=== PATIENT | female | born 1995 | race American Indian/Alaskan Native ===

== ENCOUNTER 2017-03-16 18:01 | Emergency (ER) | payer SELFPAY ==
--- NOTE | 2017-03-16 20:10 | Emergency Department Report ---
HPI - General Chief Complaint: Sore Throat Time Seen by Provider: 03/16/17 19:59 - HPI HPI: Patient is a 21-year-old female who presents to ED complaining of throat pain 3 days. Patient describes pain as throbbing in nature, 8 out of 10 intensity, nonradiating, localized to his throat. Admits pain with swallowing and eating. Patient admits no appetite due to throat pain. Patient admits fever for the first 2 days. Denies cough and congestion or runny nose Patient denies nausea/vomiting/abdominal pain/shortness of breath/chest pain/ headache. ED Past Medical Hx - Past Medical History Previous Medical History?: No - Surgical History Past Surgical History?: No - Social History Smoking Status: Never Smoker Substance Use Type: None - Medications Home Medications: Home Medications Medication Instructions Recorded Confirmed Last Taken Type Ibuprofen Oral Liqd [Motrin] 600 mg PO TID PRN #120 ml 03/16/17 Unknown Rx predniSONE [Deltasone] 20 mg PO DAILY #3 tablet 03/16/17 Unknown Rx ED Review of Systems ROS: Stated complaint: FEVER/CONGESTION Other details as noted in HPI Constitutional: denies: chills, fever Eyes: denies: eye pain, eye discharge, vision change ENT: throat pain. denies: ear pain, dental pain, congestion Respiratory: denies: cough, shortness of breath, wheezing Cardiovascular: denies: chest pain, palpitations Endocrine: no symptoms reported Gastrointestinal: denies: abdominal pain, nausea, diarrhea Genitourinary: denies: urgency, dysuria, discharge Musculoskeletal: denies: back pain, joint swelling, arthralgia Skin: denies: rash, lesions Neurological: denies: headache, weakness, paresthesias Psychiatric: denies: anxiety, depression Hematological/Lymphatic: denies: easy bleeding, easy bruising Physical Exam - Physical Exam Vital Signs: Vital Signs 03/16/17 18:10 Temperature 99.1 F Pulse Rate 103 H Respiratory 16 Rate Blood Pressure 127/87 O2 Sat by Pulse 97 Oximetry Physical Exam: GENERAL: Alert and oriented x3, no apparent distress, Normal Gait, atraumatic. EARS: symetrical, atraumatic, non tender, ear canal clear and moderate cerumen, tympanic membrance non inflamed. gross auditory nml bilaterally. NOSE: Nose symetrical, Nontender,Nares appeared normal. MOUTH:Mouth is well hydrated and without lesions. Tonsils are moderately erythematous ans swollen, Uvula midline, Tongue not elevated. Mucous membranes are moist. Posterior pharynx erythematous and mild exudate , no lesions. Patent airways. NECK: Supple. Non edematous, mild lymphadenopathy , no thyromegaly. LUNGS: Symetrical with respiration, No wheezing, no rales or crackles, CTAB. HEART: S1, S2 present, regular rate and rhythm without murmur, no rubs, no gallops. Non tender to palpation ABDOMEN: No organomegaly was noted,. Nontender to palpation on all Quadrants, SKIN: Warm and dry, No lesions, No ulceration or induration present. ED Course Vital Signs 03/16/17 18:10 Temperature 99.1 F Pulse Rate 103 H Respiratory 16 Rate Blood Pressure 127/87 O2 Sat by Pulse 97 Oximetry ED Medical Decision Making - Medical Decision Making 22-year-old male presents with strep pharyngitis. ED course: Rapid strep tests ordered rapid strep test positive Patient received 1 dose of Tylenol, 1.2 million units of penicillin, 60 mg of prednisone. Fever responsive to one dose of Tylenol. Vital signs stable patient is in no acute or respiratory distress. Discussed findings with patient about the positive strep. Discussed treatment in ED with patient Discussed the patient that strep throat is contagious and to limit sharing spoons and such. Pt to be sent home on Motrin and a couple of days worth of prednisone. Discussed with patient follow-up with primary care physician. Patient verbally states he understands and will comply to follow-up. Critical care attestation.: If time is entered above; I have spent that time in minutes in the direct care of this critically ill patient, excluding procedure time. ED Disposition Clinical Impression: Strep pharyngitis, Acute bacterial tonsillitis Disposition: DC-01 TO HOME OR SELFCARE Is pt being admited?: No Does the pt Need Aspirin: No Condition: Stable Instructions: Strep Throat (ED), Tonsillitis (ED) Additional Instructions: Taking medication as prescribed. Follow up with her primary care physician as referred. If symptoms worsen return to ED. Prescriptions: Ibuprofen Oral Liqd [Motrin] 600 mg PO TID PRN #120 ml PRN Reason: Pain predniSONE [Deltasone] 20 mg PO DAILY #3 tablet Referrals: PRIMARY CARE, [Primary Care Provider] - 3-5 Days [facility] [Outside] - 3-5 Days [facility] [Outside] - 3-5 Days [facility] [Outside] - 3-5 Days Forms: Accompanied Note, Work/School Release Form(ED)
[2017-03-16] MEDS ORDERED: DELTASONE PO ONE (20:35)
[2017-03-16] MEDS ORDERED: TYLENOL PO ONE (20:35)
[2017-03-16] MEDS ORDERED: BICILLIN L-A IM ONE (20:35)
[2017-03-16 21:48] VITALS: BP 116/83
== END 2017-03-16 21:48 | disposition home or self-care (01) ==
LOC: ED 18:01
DX: J02.0 Streptococcal pharyngitis (principal); J03.80 Acute tonsillitis due to other specified organisms; B96.89 Other specified bacterial agents as the cause of diseases classified elsewhere
CPT/HCPCS: 81025; 87086; 87430; 96372; 99283; J0561; J7512

== ENCOUNTER 2017-08-19 14:37 | Emergency (ER) | payer OTHER ==
[2017-08-19 15:22] LABS: Basophils % (Auto) 0.5 % (0.0-1.8); Eosinophils % (Auto) 3.1 % (0.0-4.3); Hematocrit 40.4 % (30.3-42.9); Hemoglobin 12.8 gm/dl (10.1-14.3); Mean Corpuscular HGB Conc 32 % (30-34); Mean Corpuscular Hemoglobin 26 pg (28-32); Mean Corpuscular Volume 83 fl (79-97); Platelet Count 245 K/mm3 (140-440); Red Blood Count 4.85 M/mm3 (3.65-5.03); Red Cell Distribution Width 12.9 % (13.2-15.2); White Blood Count 8.1 K/mm3 (4.5-11.0)
[2017-08-19 15:30] LABS: Anion Gap 17 mmol/L; BUN/Creatinine Ratio 13; Blood Urea Nitrogen 9 mg/dL (7-17); Calcium 8.8 mg/dL (8.4-10.2); Carbon Dioxide 25 mmol/L (22-30); Chloride 102.7 mmol/L (98-107); Glucose 75 mg/dL (65-100); Sodium 141 mmol/L (137-145)
--- NOTE | 2017-08-19 18:38 | XRay Report ---
FINAL REPORT PROCEDURE: XR CHEST ROUTINE 2V TECHNIQUE: PA and lateral chest radiographs were obtained. CPT 77351 HISTORY: Shortness of breath. COMPARISON: No prior studies are available for comparison. FINDINGS: Heart: Normal. Mediastinum/Vessels: Normal. Lungs/Pleural space: Normal. Bony thorax: No acute osseous abnormality. Other: IMPRESSION: No radiographic evidence of acute cardiopulmonary disease.
[2017-08-19] MEDS ORDERED: NORCO 5/325 PO ONE (19:39)
[2017-08-19] MEDS ORDERED: MOTRIN PO ONE (19:39)
--- NOTE | 2017-08-19 19:46 | Emergency Department Report ---
HPI - General Chief Complaint: Dyspnea/Respdistress Time Seen by Provider: 08/19/17 19:19 - HPI HPI: Room 5 The patient is a 22-year-old female presenting with a chief complaint of chest pain and back pain. The patient states for the past 3 days she has had pain in the substernal, lower costal margin and upper back that worsens whenever she takes a deep breath. She describes the pain as sharp in nature. Patient denies cough, fever, shortness of breath or rhinorrhea. Patient denies taking oral contraceptives or been on any recent flights/long car trips. Patient denies any previous episodes of same. The patient currently gives her pain a score of 7/10 Location: [See above] Duration: 3 days Quality: Sharp Severity: 7/10 Modifying factors: [see above] Context: [see above] Mode of transportation: [not driving] ED Past Medical Hx - Past Medical History Previous Medical History?: No - Surgical History Past Surgical History?: No - Family History Family history: no significant - Social History Smoking Status: Current Every Day Smoker (1 pack per day) Substance Use Type: None (denies illicit drug use) - Medications Home Medications: Home Medications Medication Instructions Recorded Confirmed Last Taken Type Ibuprofen Oral Liqd [Motrin] 600 mg PO TID PRN #120 ml 03/16/17 Unknown Rx predniSONE [Deltasone] 20 mg PO DAILY #3 tablet 03/16/17 Unknown Rx HYDROcodone/APAP 5-325 [[place] 1 - 2 each PO Q6HR PRN #10 tablet 08/19/17 Unknown Rx 5/325] Ibuprofen [Motrin] 800 mg PO Q8HR PRN #20 tablet 08/19/17 Unknown Rx ED Review of Systems ROS: Stated complaint: FLU LIKE SYMPTOMS Other details as noted in HPI Constitutional: denies: fever Respiratory: other (pleurisy). denies: cough, shortness of breath Musculoskeletal: back pain Physical Exam - Physical Exam Vital Signs: Vital Signs 08/19/17 14:42 Temperature 98.3 F Pulse Rate 83 Respiratory 16 Rate Blood Pressure 123/81 O2 Sat by Pulse 99 Oximetry Physical Exam: GENERAL: The patient is well-developed well-nourished female lying on stretcher not appearing to be in acute distress. [] HEENT: Normocephalic. Atraumatic. Extraocular motions are intact. Patient has moist mucous membranes. NECK: Supple. Trachea midline CHEST/LUNGS: Clear to auscultation. There is no respiratory distress noted. HEART/CARDIOVASCULAR: Regular. There is no tachycardia. There is no gallop rub or murmur. ABDOMEN: Abdomen is soft, nontender. Patient has normal bowel sounds. There is no abdominal distention. SKIN: There is no rash. There is no edema. There is no diaphoresis. NEURO: The patient is awake, alert, and oriented. The patient is cooperative. The patient has normal speech MUSCULOSKELETAL: There is no tenderness to palpation of either calf. There is no evidence of acute injury. ED Course Vital Signs 08/19/17 14:42 Temperature 98.3 F Pulse Rate 83 Respiratory 16 Rate Blood Pressure 123/81 O2 Sat by Pulse 99 Oximetry ED Medical Decision Making - Lab Data Result diagrams: 08/19/17 14:55 08/19/17 14:55 Laboratory Tests 08/19/17 08/19/17 08/19/17 14:55 14:55 19:34 WBC 8.1 RBC 4.85 Hgb 12.8 Hct 40.4 MCV 83 MCH 26 L MCHC 32 RDW 12.9 L Plt Count 245 Lymph % (Auto) 23.1 [place] % (Auto) 7.6 H Eos % (Auto) 3.1 Baso % (Auto) 0.5 Lymph # 1.9 [place] # 0.6 Eos # 0.2 Baso # 0.0 Seg Neutrophils % 65.7 Seg Neutrophils # 5.3 D-Dimer 180.01 Sodium 141 Potassium 4.0 Chloride 102.7 Carbon Dioxide 25 Anion Gap 17 BUN 9 Creatinine 0.7 Estimated GFR > 60 BUN/Creatinine Ratio 13 Glucose 75 Calcium 8.8 Troponin T < 0.010 HCG, Qual 08/19/17 19:39 WBC RBC Hgb Hct MCV MCH MCHC RDW Plt Count Lymph % (Auto) [place] % (Auto) Eos % (Auto) Baso % (Auto) Lymph # [place] # Eos # Baso # Seg Neutrophils % Seg Neutrophils # D-Dimer Sodium Potassium Chloride Carbon Dioxide Anion Gap BUN Creatinine Estimated GFR BUN/Creatinine Ratio Glucose Calcium Troponin T HCG, Qual Negative - EKG Data -: EKG Interpreted by Vt EKG shows normal: sinus rhythm Rate: normal - EKG Data When compared to previous EKG there are: previous EKG unavailable Interpretation: nonspecific ST-T wave manish (T-wave inversions in leads 3, aVF, V3 , V4, V5, V6) - Radiology Data Radiology results: image reviewed (chest x-ray) interpreted by me: Chest x-ray-no focal infiltrates, no pneumothorax - Differential Diagnosis PE, pleurisy, bronchitis, pneumonia Critical care attestation.: If time is entered above; I have spent that time in minutes in the direct care of this critically ill patient, excluding procedure time. ED Disposition Clinical Impression: Pleurisy Disposition: TO HOME OR SELFCARE Is pt being admited?: No Does the pt Need Aspirin: No Condition: Stable Instructions: Pleurisy (ED) Additional Instructions: Return to the emergency department immediately should you develop worsening symptoms, fever, inability to tolerate food or liquid or any other concerns. Prescriptions: HYDROcodone/APAP 5-325 [[place] 5/325] 1 - 2 each PO Q6HR PRN #10 tablet PRN Reason: Pain Ibuprofen [Motrin] 800 mg PO Q8HR PRN #20 tablet PRN Reason: Pain Referrals: SANTOS CARRILLO MD [Staff Physician] - 3-5 Days [facility] [Outside] - 3-5 Days Time of Disposition: 20:31
[2017-08-19 21:39] VITALS: BP 120/57
== END 2017-08-19 21:37 | disposition home or self-care (01) ==
LOC: ED 14:37
DX: R09.1 Pleurisy (principal); M54.9 Dorsalgia, unspecified; F17.210 Nicotine dependence, cigarettes, uncomplicated
CPT/HCPCS: 36415; 71020; 80048; 84484; 84703; 85025; 85379; 93005; 93010; 99284

== ENCOUNTER 2017-09-22 19:02 | Emergency (ER) | payer SELFPAY ==
[2017-09-22 20:10] VITALS: BP 119/73
--- NOTE | 2017-09-22 21:36 | Emergency Department Report ---
Minor Respiratory - HPI Chief Complaint: Upper Respiratory Infection Stated Complaint: FLU LIKE SYMPTOMS Time Seen by Provider: 09/22/17 21:33 Duration: 2 Days Pain Location: Other Severity: mild Minor Respiratory: Yes Sore Throat, Yes Able to Tolerate Fluids, Yes Cough, No Rhinorrhea, No Ear Pain, No Sick Contacts, No Hemoptysis, No Chest Pain, No Shortness of Breath, No Fever Other History: no abd pain. no dysuria. no flank pain. no cva tenderness. no vag dc or bleeding ED Review of Systems ROS: Stated complaint: FLU LIKE SYMPTOMS Other details as noted in HPI Comment: All other systems reviewed and negative Constitutional: see HPI, malaise Eyes: as per HPI ENT: as per HPI Respiratory: see HPI, cough Cardiovascular: as per HPI Endocrine: no symptoms reported Gastrointestinal: nausea, diarrhea, other (but no n/v/d since here in the er for now 3 hours) ED Past Medical Hx - Past Medical History Previous Medical History?: Yes Additional medical history: polysub abuse - Surgical History Past Surgical History?: No - Social History Smoking Status: Never Smoker Substance Use Type: None Minor Respiratory Exam - Exam General: Vital signs noted. No distress. Alert and acting appropriately. HEENT: Yes Pharyngeal Erythema, Yes Moist Mucous Membranes, No Pharyngeal Exudates, No Rhinorrhea, No Conjuctival Injection, No Frontal Tenderness, No Maxillary Tenderness Ear: Neither TM Bulge, Neither TM Erythema, Neither EAC Pain, Neither EAC Discharge Neck: Yes Supple, No Adenopathy Lungs: Yes Good Air Exchange, Yes Cough, No Wheezes, No Ronchi, No Stridor, No Labored Respirations, No Retractions, No Use of Accessory Muscles, No Other Abnormal Lung Sounds Heart: Yes Regular, No Murmur Abdomen: Yes Normal Bowel Sounds, No Tenderness, No Peritoneal Signs Skin: No Rash, No Edema Neurologic: Alert and oriented, no deficits. Musculoskeletal: Unremarkable. ED Course Vital Signs 09/22/17 20:07 Temperature 97.9 F Pulse Rate 95 H Respiratory 18 Rate Blood Pressure 119/73 O2 Sat by Pulse 97 Oximetry - Reevaluation(s) Reevaluation #1: 09/22/17 21:59 As to the ER today with chief complaint of flulike symptoms and body aches since Saturday. She has missed work since that time. Patient's exam is benign with the exception of a mild cough and mild erythema of the posterior oropharynx. Vital signs are stable is no fever. No nausea vomiting or diarrhea. No abdominal pain no dysuria. No CVA tenderness. No purulent discharge with the cough. No headache. No other signs or symptoms suggestive of an acute infection. sat 99 ra; hr 85; temp 99.1 orally taking po has been out of work since Saturday due to return in AM flu neg Reevaluation #2: 09/22/17 22:04 drinking juice with no n/v/d ambulatory nad 09/22/17 22:20 asking for work note- missed since Saturday ED Medical Decision Making - Medical Decision Making see note - Differential Diagnosis viral illness v influenza Critical care attestation.: If time is entered above; I have spent that time in minutes in the direct care of this critically ill patient, excluding procedure time. ED Disposition Clinical Impression: Viral illness Disposition: DC- TO HOME OR SELFCARE Is pt being admited?: No Does the pt Need Aspirin: No Condition: Stable Instructions: Viral Syndrome (ED) Additional Instructions: rest hydrate well advance diet as tolerated follow up with pcp within 48 hours to be sure you are getting better motrin or tylenol for fever or body pain return to er if you have fever over 100.5 orally that will not come down with motrin or tylenol Referrals: JOSE HARDY MD [Staff Physician] - 3-5 Days Forms: Work/School Release Form(ED) Time of Disposition: 21:54
[2017-09-22 22:19] LABS: Bilirubin,Urine NEG (Negative); Blood,Urine LG (Negative); Color,Urine Yellow (Yellow); Mucus,Urine 2+ /HPF; Nitrite,Urine NEG (Negative); Protein,Urine <15 mg/dL mg/dL (Negative)
[2017-09-22 22:32] LABS: HCG Qualitative,Urine Negative (Negative)
== END 2017-09-22 22:30 | disposition home or self-care (01) ==
LOC: ED 19:02
DX: B34.9 Viral infection, unspecified (principal); F19.10 Other psychoactive substance abuse, uncomplicated
CPT/HCPCS: 81001; 81025; 87400; 99283

== ENCOUNTER 2018-10-02 03:30 | Emergency (ER) | payer SELFPAY ==
[2018-10-02 03:53] VITALS: BP 130/81
--- NOTE | 2018-10-02 04:31 | Emergency Department Report ---
Minor Respiratory - HPI Chief Complaint: Upper Respiratory Infection Stated Complaint: FLU SYMPTOMS Duration: 3 Days Pain Location: Throat, Nose Severity: mild Minor Respiratory: Yes Rhinorrhea, Yes Sore Throat, Yes Able to Tolerate Fluids, Yes Cough, Yes Sick Contacts, No Ear Pain, No Hemoptysis, No Chest Pain, No Shortness of Breath, No Fever Other History: This is a 23-year-old -[place] female who presents with upper respiratory symptoms. Patient reports symptoms started 3 days ago with a cough, fever, sore throat, and body aches. Patient reports some nausea without vomiting Saturday. She is currently taking Mucinex and TheraFlu last taken this morning. He denies chest pain, shortness of breath, wheeze, or diarrhea. ED Review of Systems ROS: Stated complaint: FLU SYMPTOMS Other details as noted in HPI Constitutional: denies: chills, fever ENT: throat pain, congestion. denies: ear pain, dental pain, hearing loss, epistaxis Respiratory: cough. denies: shortness of breath, wheezing Cardiovascular: denies: chest pain, palpitations Gastrointestinal: nausea. denies: abdominal pain, vomiting, diarrhea Musculoskeletal: myalgia Neurological: denies: headache, weakness, paresthesias Psychiatric: denies: anxiety, depression ED Past Medical Hx - Past Medical History Previous Medical History?: Yes Additional medical history: polysub abuse - Surgical History Past Surgical History?: No - Social History Smoking Status: Current Every Day Smoker Substance Use Type: None - Medications Home Medications: Home Medications Medication Instructions Recorded Confirmed Last Taken Type Benzonatate [Tessalon Perle] 100 mg PO TID PRN #30 capsule 10/02/18 Unknown Rx Fluticasone [Flonase] 1 spray NS QDAY #1 bottle 10/02/18 Unknown Rx Guaifenesin/Pseudoephedrne HCl 1 each PO Q6H #14 tab.er.12h 10/02/18 Unknown Rx [Guaifenesin-Pse ER 600-60 mg] Minor Respiratory Exam - Exam General: Vital signs noted. No distress. Alert and acting appropriately. HEENT: Yes Pharyngeal Erythema (erythematous posterior pharynx, uvula midline), Yes Moist Mucous Membranes, Yes Rhinorrhea (turbinates are mildly congested with clear discharge), No Pharyngeal Exudates, No Conjuctival Injection, No Frontal Tenderness, No Maxillary Tenderness Ear: Neither TM Bulge, Neither TM Erythema, Neither EAC Pain, Neither EAC Discharge Neck: Yes Supple, No Adenopathy Lungs: Yes Good Air Exchange, No Wheezes, No Ronchi, No Stridor, No Cough, No Labored Respirations, No Retractions, No Use of Accessory Muscles, No Other Abnormal Lung Sounds Heart: Yes Regular, No Murmur Abdomen: Yes Normal Bowel Sounds, No Tenderness, No Peritoneal Signs Skin: No Rash, No Edema Neurologic: Alert and oriented, no deficits. Musculoskeletal: Unremarkable. ED Course Vital Signs 10/02/18 03:48 Temperature 97.5 F L Pulse Rate 75 Respiratory 14 Rate Blood Pressure 130/81 O2 Sat by Pulse 99 Oximetry ED Medical Decision Making - Lab Data Lab Results 10/02/18 Range/Units 04:00 Group A Strep Rapid Negative (Negative) - Medical Decision Making 23 y.o. female that presents with URI symptoms. Patient examined by me and stable. No distress noted. Vitals normal. A rapid strap was obtained and negative. Given dexamethasone 8 mg IM. Upper respiratory infection or viral syndrome. We discussed symptomatic treatment, observation and encouraged fluid intake. Start benzonatate, Flonase, and Mucinex DM. Discharged home stable. Encouraged to do supportive care for URI. Follow up with Primary Care Provider in 2-3 days. Critical care attestation.: If time is entered above; I have spent that time in minutes in the direct care of this critically ill patient, excluding procedure time. ED Disposition Clinical Impression: Upper respiratory infection, viral, Acute viral syndrome, Sore throat (viral) Disposition: -01 TO HOME OR SELFCARE Is pt being admited?: No Does the pt Need Aspirin: No Condition: Stable Instructions: Upper Respiratory Infection (ED), Viral Syndrome (ED), Cold Symptoms (ED) Additional Instructions: Increase fluid intake and rest. Wash hands frequently. Continue taking Tylenol or ibuprofen to control fever. F/U with Primary Care Provider. Return to ER if fever, SOB, or difficulty breathing after 48 hours of supportive care. Prescriptions: Benzonatate [Tessalon Perle] 100 mg PO TID PRN #30 capsule PRN Reason: Cough Fluticasone [Flonase] 1 spray NS QDAY #1 bottle Guaifenesin/Pseudoephedrne HCl [Guaifenesin-Pse ER 600-60 mg] 1 each PO Q6H #14 tab.er.12h Referrals: [facility] [Outside] - 3-5 Days [facility] [Outside] - 3-5 Days [facility] [Outside] - 3-5 Days Forms: Work/School Release Form(ED) Time of Disposition: 04:34
[2018-10-02] MEDS ORDERED: DECADRON IM ONE (04:35)
== END 2018-10-02 05:00 | disposition home or self-care (01) ==
LOC: ED 03:30
DX: J02.8 Acute pharyngitis due to other specified organisms (principal); J06.9 Acute upper respiratory infection, unspecified; B34.9 Viral infection, unspecified; F17.200 Nicotine dependence, unspecified, uncomplicated
CPT/HCPCS: 87116; 87430; 96372; 99283; J1100

== ENCOUNTER 2019-01-26 19:41 | Emergency (ER) | payer SELFPAY ==
--- NOTE | 2019-01-26 20:04 | Emergency Department Report ---
Chief Complaint: Laceration/Recheck/Suture Stated Complaint: NEED STITCHES REMOVED Time Seen by Provider: 01/26/19 20:00 - HPI History of Present Illness: This is a 23 y.o. F. that presents to the ER for suture removal. Patient reports sutures applied 2 weeks ago. Denies drainage, warmth around site, swelling, or bruising. No significant PMH. - Exam Vital Signs: Vital Signs 01/26/19 20:00 Temperature 98 F Pulse Rate 116 H Respiratory 18 Rate Blood Pressure 151/106 O2 Sat by Pulse 97 Oximetry Physical Exam: GENERAL: The patient is well looking, in no acute distress. CHEST: Air entry is adequate bilaterally with no rhonchi, and crackles. HEART: Sounds 1 and 2 are heard and are normal. Regular rate and rhythm, no tachycardic, murmurs, gallops, or rubs. ABDOMEN: Soft and nontender. Bowel sounds are present and normal. There is no hepatosplenomegaly. SKIN: Sutures x 4 to dorsal right hand, no erythema, swelling, drainage, nontender. EXTREMITIES: Without edema, cyanosis, or clubbing. MSE screening note: Focused history and physical exam performed. Due to findings the following was ordered: ED Medical Decision Making - Medical Decision Making Patient was examined by me and stable. In no acute distress. Four Sutures removed from right dorsal. No signs of infection. Instructed to apply mederma or vitamin E to wound to improve scare. Discharged home in stable condition. Discussed prevention options. F/U with PCP. ED Disposition for MSE Clinical Impression: Encounter for removal of sutures Disposition: - TO HOME OR SELFCARE Is pt being admited?: No Does the pt Need Aspirin: No Condition: Stable Instructions: Suture Removal (ED) Additional Instructions: Apply mederma or vitamin E to improve scaring. Follow up with primary care doctor if symptoms are not improving. Referrals: [facility] [Outside] - 3-5 Days [facility] [Outside] - 3-5 Days [facility] [Outside] - 3-5 Days Forms: Work/School Release Form(ED) Time of Disposition: 20:21
[2019-01-26 20:12] VITALS: BP 145/98
== END 2019-01-26 20:31 | disposition home or self-care (01) ==
LOC: ED 19:41
DX: Z48.01 Encounter for change or removal of surgical wound dressing (principal); T14.8XXD Other injury of unspecified body region, subsequent encounter